=== PATIENT | male | born 1995 | race African-American/Black ===

== ENCOUNTER 2018-01-14 14:33 | Emergency (ER) | payer OTHER ==
[~2018-01-14] VITALS: Ht 167.6 cm; Wt 70.5 kg
[2018-01-14 15:58] VITALS: BP 113/73
[2018-01-14] MEDS ORDERED: LORazepam 2 MG/ML VIAL IVP ONE (17:15)
[2018-01-14] MEDS ORDERED: SODIUM CHLORIDE 0.9% 1,000 ML IV ONE (17:15)
== END 2018-01-14 17:19 | disposition left against medical advice (07) ==
LOC: EMS 14:34
DX: F41.9 Anxiety disorder, unspecified (principal); F10.10 Alcohol abuse, uncomplicated; F14.10 Cocaine abuse, uncomplicated; F12.10 Cannabis abuse, uncomplicated; Z98.890 Other specified postprocedural states; Y90.9 Presence of alcohol in blood, level not specified
CPT/HCPCS: 99283